=== PATIENT | female | born 1965 | race Caucasian/White ===

== ENCOUNTER 2020-11-16 15:45 | Outpatient (CLI) | payer MEDICARE, SELFPAY ==
--- NOTE | 2020-11-16 16:00 | USR_ITS ---
PROCEDURE INFORMATION: Exam: US Duplex Right Lower Extremity Veins, Limited Exam date and time: 11/16/2020 4:00 PM Age: 55 years old Clinical indication: Pain; Leg, lower; Right; Additional info: Right groin pain TECHNIQUE: Imaging protocol: Real-time Duplex ultrasound of the Right Lower Extremity with 2-D joel scale, color Doppler flow and spectral waveform analysis with image documentation. Limited exam was focused on the right lower extremity veins. COMPARISON: No relevant prior studies available. FINDINGS: Right deep veins: Unremarkable. The common femoral, femoral, proximal profunda femoral and popliteal veins are patent without thrombus. Normal Doppler waveforms. Normal compressibility and/or augmentation response. Right superficial veins: Unremarkable. Saphenofemoral junction is patent without thrombus. Soft tissues: Unremarkable. US/[place] [id number] IMPRESSION: No evidence of deep vein thrombosis.
== END 2020-11-16 15:46 | disposition home or self-care (01) ==
PROVIDERS: PCP Nurse Practitioner Family; Visit Provider Family Medicine
DX: M79.661 Pain in right lower leg (principal)
CPT/HCPCS: 93971

== ENCOUNTER 2020-11-17 11:52 | Emergency (ER) | payer MEDICARE, SELFPAY ==
[2020-11-17 12:04] VITALS: BP 125/81; PULSE 86; RESP 18; TEMP 36.5; O2SAT 97; BMI 21.1
--- NOTE | 2020-11-17 13:13 | CTR_ITS ---
PROCEDURE INFORMATION: Exam: CT Lumbar Spine Without Contrast Exam date and time: 11/17/2020 1:13 PM Age: 55 years old Clinical indication: Low back pain; Patient HX: C/O lbp/rle pain w/o injury prev rfa; Additional info: Pain with R leg radiculopathy TECHNIQUE: Imaging protocol: Computed tomography images of the lumbar spine without contrast. Radiation optimization: All CT scans at this facility use at least one of these dose optimization techniques: automated exposure control; mA and/or kV adjustment per patient size (includes targeted exams where dose is matched to clinical indication); or iterative reconstruction. COMPARISON: MRI Lumbar Spine w/o [id number] 01/01/2016 7:49 AM RADIATION DOSE METRICS: Total DLP (mGy-cm): 1530.11 FINDINGS: Vertebrae: There is no fracture of the lumbar spine. Lumbar vertebra maintain their height and alignment. There is no fracture of the posterior elements. There is no focal osseous lesion. Vertebral alignment is within normal limits. T12-L1: No disc bulge. No central or foraminal stenosis. L1-L2: Minimal disc bulge. No central or foraminal stenosis. L2-L3: There is a mild disc bulge with a more focal 4 mm far left lateral disc protrusion encroaching on the inferior aspect of the left neural foramen . The disc abuts the left L2 nerve root. L3-L4: Mild disc bulge with a 3 mm far left lateral focal disc protrusion mildly encroaching on the inferior aspect of the left foramen. There is partial effacement of the fat adjacent to the exiting left L3 nerve root in an extraforaminal location. No central or right foraminal stenosis. L4-L5: Mild disc bulge. There is facet arthropathy with mild bilateral foraminal stenosis. There is no central stenosis. There is a 5 mm far right lateral disc protrusion with a calcified annulus. This abuts the exiting right L4 nerve root. L5-S1: There is disc space narrowing with vacuum degeneration of the disc. There is a small posterior bony ridge and disc bulge. There is facet arthropathy. This results in moderate to severe right and more severe left foraminal stenosis. There is impingement of the exiting left L5 nerve root . The there is no central stenosis. Soft tissues: Unremarkable. CT/CT lumbar spine wo con* [id number] IMPRESSION: Multilevel disc disease and facet arthropathy as detailed above. Radiation Dose CTDIVOL = (mGy): DLP = 1530.11 (mGy-cm)
--- NOTE | 2020-11-17 13:17 | ED_ITS ---
HPI - Extremity Problem General: Chief complaint: Extremity Problem,Nontraumatic Stated complaint: LRE pain and swelling Time Seen by Provider: 11/17/20 12:40 History of Present Illness: HPI Narrative: 55-year-old female presents to the emergency room with complaints of right lower extremity pain radiating from the thigh down to the ankle. No injury. She had a venous duplex yesterday which is negative she does note any real significant swelling pain is very sensitive to motion in the hip as well. No trauma. Is not had any fever sweats or chills. MD Complaint: extremity pain Onset (ago): day(s) Pain Consistency: constant Location: right Quality: aching Radiation: distal Relieving factors: immobilization Exacerbating factors: weight bearing and walking Associated symptoms: Deny arthralgias, chest pain, fever(s), myalgias, rash or short of breath Review of Systems Const: Denies: fever(s) ENMT: Denies: throat pain, ear or mastoid pain, nasal discharge or nasal congestion Card: Denies: chest pain Resp: Denies: dyspnea, productive cough or non-productive cough GI: Denies: abdominal pain, nausea, vomiting, hematemesis, coffee ground emesis, diarrhea, constipation, bloating, hematochezia or melena : Denies: flank pain, difficulty voiding, dysuria, urinary frequency or urinary urgency Skin/Breast: Denies: rash Physical Exam Const: COMMON NORMALS: no acute distress GENERAL APPEARANCE: cooperative and comfortable ORIENTATION/CONSCIOUSNESS: Yes awake, Yes oriented to person, Yes oriented to place and Yes oriented to time HENMT: COMMON NORMALS: normocephalic, atraumatic, hearing grossly normal bilaterally and external ears normal HEAD & SCALP: normocephalic and atraumatic EXTERNAL EAR: Yes external ears normal Neck/C-Spine: COMMON NORMALS: no JVD Resp: COMMON NORMALS: normal respiratory effort, No retractions, No use of accessory muscles and clear to auscultation bilaterally AUSCULTATION: clear to auscultation bilaterally Cardio: COMMON NORMALS: no JVD, regular rate, regular rhythm and No murmurs present (Cardio) RATE: regular rate RHYTHM: regular rhythm GI: COMMON NORMALS: Soft to palpation and No hepatosplenomegaly present AUSCULTATION: Yes normoactive bowel sounds PALPATION: Yes Soft to palpation, No Tenderness to palpation present (GI), No Guarding due to palpation present (GI) and Yes No hepatosplenomegaly present Extremity: COMMON NORMALS: normal to inspection, capillary refill normal, no clubbing, cyanosis or edema, no calf tenderness and no pedal edema Neuro: SENSORIUM/ORIENTATION: Yes oriented to person, Yes oriented to place and Yes oriented to time Skin: COMMON NORMALS: no rashes or lesions noted GENERAL SKIN EXAM: no rashes or lesions noted Course Vital Signs: Vital signs: Vital Signs Temperature 97.7 F 11/17/20 12:04 Pulse Rate 77 11/17/20 15:39 Respiratory Rate 18 11/17/20 15:39 Blood Pressure 119/78 11/17/20 15:39 Pulse Oximetry 99 11/17/20 15:39 MDM - Extremity (Nontraumatic) MDM Narrative: Medical decision making narrative: Reviewed laboratory and imaging findings with the patient in the chart. We will discharge her home with pain medications muscle relaxers recommend follow-up with her primary care provider for advanced imaging if not improving Lab Data: Attestation: I reviewed the patient's lab results. Labs: Lab Results 11/17/20 11/17/20 Range/Units 13:25 13:25 WBC 8.6 (4.0-10.0) 10^3/ uL RBC 4.52 (4.1-5.3) 10^6/u L Hgb 14.9 (11.5-15.3) g/dL Hct 46.4 (37.0-47.0) % MCV 102.7 H (81-99) fL MCH 33.0 (28.0-34.0) pg MCHC 32.1 (30.0-36.0) g/dL RDW 13.0 (12.1-15.1) % Plt Count 301 (130-400) 10^3/c mm MPV 9.6 (7.4-10.4) fL Neut % (Auto) 63.9 % Lymph % (Auto) 25.7 % Mason % (Auto) 7.3 % Eos % (Auto) 2.1 % Baso % (Auto) 0.8 % Neut # (Auto) 5.51 (1.8-7.7) 10^3/u L Lymph # (Auto) 2.2 (0.8-4.8) 10^3/u L Mason # (Auto) 0.6 (0.2-0.9) 10^3/u L Eos # (Auto) 0.2 (0.0-0.8) 10^3/u L Baso # (Auto) 0.1 (0.0-0.1) 10^3/u L Nucleated RBC % (a uto) 0 % Nucleated RBCs # 0.0 /100WBC Sodium 139 (136-145) mmol/L Potassium 5.0 (3.5-5.1) mmol/L Chloride 103 (98-107) mmol/L Carbon Dioxide 28 (22-29) mmol/L Anion Gap 13.0 (5-19) BUN 9 (6-20) mg/dL Creatinine 0.6 (0.5-0.9) mg/dL GFR Calculation 104.6 (90-130) mL/min Glucose 90 (65-115) mg/dL Calculated Osmolal ity 286 (285-295) mOsm/k g Calcium 8.5 (8.5-10.5) mg/dL Total Bilirubin 0.3 (0.15-1.2) mg/dL AST 14 (0-32) U/L ALT < 5 (0-33) U/L Alkaline Phosphata se 74 (35-105) IU/L Total Protein 6.3 L (6.6-8.7) g/dL Albumin 4.1 (3.5-5.2) g/dL Globulin 2.2 (1.3-4.6) g/dL Discharge Plan Discharge Patient Disposition: Home Clinical Impression: Lumbar radiculopathy, right Condition: Stable Prescriptions: New hydrocodone-acetaminophen 5-325 mg tablet 1 tab PO Q6H PRN (Reason: pain) Qty: 20 RF: 0 diclofenac sodium 75 mg tablet,delayed release (DR/EC) 75 mg PO Q12H PRN (Reason: pain) Qty: 20 RF: 0 tizanidine 4 mg capsule 4 mg PO Q6H PRN (Reason: muscle spasticity) Qty: 30 RF: 0 prednisone 20 mg tablet 20 mg PO TID Qty: 15 RF: 0 No Action oxybutynin chloride 10 mg tablet extended release 24hr 10 mg PO BEDTIME RF: 0 carbidopa-levodopa 50-200 mg tablet extended release 1 tab PO BEDTIME RF: 0 trazodone 100 mg tablet 100 mg PO BEDTIME RF: 0 duloxetine 60 mg capsule,delayed release(DR/EC) 60 mg PO BID MDD see pharmacy comment RF: 0 Xanax 0.5 mg Tablet 0.5 mg PO BID PRN (Reason: Anxiety) RF: 0 PreserVision AREDS-2 250-90-40-1 mg Capsule 1 tab PO BID RF: 0 Discharge Orders: Discharge ED (Routine); Ordered 11/17/20 Ordered By: Sebastien Ratliff Referrals: Heidy Werner FNP [Primary Care Provider] - Discharge Diet: Usual diet Discharge Activity: Limit activity as instructed Patient Instructions: Opioid Safety Coding Level of Care Code ED Compounding Technician for Rob Fwd Exam Comprehensive
[2020-11-17 13:18] VITALS: BP 119/80; PULSE 82; RESP 14; O2SAT 99
[2020-11-17 13:40] LABS: Basophils # 0.1 10^3/uL (0.0-0.1); Basophils % 0.8 %; Eosinophils # 0.2 10^3/uL (0.0-0.8); Eosinophils % 2.1 %; Hematocrit 46.4 % (37.0-47.0); Hemoglobin 14.9 g/dL (11.5-15.3); Lymphocytes # 2.2 10^3/uL (0.8-4.8); Lymphocytes % 25.7 %; Mean Corpuscular HGB Conc 32.1 g/dL (30.0-36.0); Mean Corpuscular Volume 102.7 fL (81-99); Mean Platelet Volume 9.6 fL (7.4-10.4); Monocytes # 0.6 10^3/uL (0.2-0.9); Monocytes % 7.3 %; Neutrophils # 5.51 10^3/uL (1.8-7.7); Neutrophils % 63.9 %; Nucleated Red Blood Cells % 0 %; Platelet Count 301 10^3/cmm (130-400); Red Blood Count 4.52 10^6/uL (4.1-5.3); White Blood Count 8.6 10^3/uL (4.0-10.0)
[2020-11-17 14:00] VITALS: BP 120/77; PULSE 84; RESP 14; O2SAT 99
[2020-11-17 14:02] LABS: Alanine Aminotransferase < 5 U/L (0-33); Albumin Level 4.1 g/dL (3.5-5.2); Alkaline Phosphatase 74 IU/L (35-105); Aspartate Amino Transferase 14 U/L (0-32); Blood Urea Nitrogen 9 mg/dL (6-20); Calcium 8.5 mg/dL (8.5-10.5); Carbon Dioxide 28 mmol/L (22-29); Chloride 103 mmol/L (98-107); Globulin 2.2 g/dL (1.3-4.6); Glomerular Filtration Rate 104.6 mL/min (90-130); Glucose 90 mg/dL (65-115); Osmolality Calculated 286 mOsm/kg (285-295); Sodium 139 mmol/L (136-145); Total Bilirubin 0.3 mg/dL (0.15-1.2); Total Protein 6.3 g/dL (6.6-8.7)
[2020-11-17 15:39] VITALS: BP 119/78; PULSE 77; RESP 18; O2SAT 99
== END 2020-11-17 15:40 | disposition home or self-care (01) ==
PROVIDERS: Emergency Provider Family Medicine; PCP Nurse Practitioner Family
DX: M54.16 Radiculopathy, lumbar region (principal)
CPT/HCPCS: 72131; 80053; 85025; 99283

== ENCOUNTER 2020-12-04 12:44 | Outpatient (CLI) | payer MEDICARE, SELFPAY ==
--- NOTE | 2020-12-04 13:10 | MR_ITS ---
WS: [id number] MRI LUMBAR SPINE NONCONTRAST HISTORY: ABNORMAL L-SPINE CT SCAN COMPARISON: CT 11/17/2020 and prior MRI 01/01/2016 TECHNIQUE: Sagittal and axial multisequence imaging is submitted. 2 mm retrolisthesis of L2. No acute fracture or marrow edema. Osteochondrosis noted at L5-S1 with mod erate narrowing of the disc space and desiccation. Conus terminates normally at L1-2 disc level. L1-L2: Normal. L2-L3: Mild bilateral facet joint arthritis and ligamentum flavum hypertrophy, LEFT greater than RIGH T. LEFT foraminal disc protrusion and osteophyte with minimal contact on the L2 nerve root. L3-L4: Mild annular disc bulging with ligamentum flavum hypertrophy. No stenosis. L4-L5: Diffuse annular disc bulging and mild osteophytic ridging. RIGHT subarticular and foraminal di sc protrusion and osteophyte. Moderate RIGHT foraminal stenosis and mild on the LEFT. L5-S1: Diffuse asymmetric osteophytic ridging and disc bulging. Slightly greater to the LEFT. Central thecal sac is widely patent with mild clumping of the nerve roots. Bilateral facet joint arthritis, LEFT greater than RIGHT. Disc protrusion and osteophyte causing a moderate to severe LEFT subarticula r and foraminal stenosis. Mild stenosis on the RIGHT. Visualized retroperitoneum is negative. MR/MR lumbar spine wo con* [id number] IMPRESSION: 1. Advanced degenerative disc disease and osteochondrosis is stable at L5-S1. 2. Moderate to severe LEFT subarticular and foraminal stenosis at L5-S1 due to combination of disc protrusions and osteophyte with moderate encroachment upon the L5 nerve root. Similar to the prior study. 3. Mild RIGHT foraminal stenosis at L5-S1 with mild encroachment upon the L5 n erve root. 4. Moderate RIGHT foraminal and subarticular stenosis at L4-5 due to disc and osteophyte disease. Similar to the prior study.
== END 2020-12-04 12:45 | disposition home or self-care (01) ==
LOC: RADSHAW 12:49
PROVIDERS: PCP Nurse Practitioner; Visit Provider Nurse Practitioner
DX: R93.7 Abnormal findings on diagnostic imaging of other parts of musculoskeletal system (principal); M51.37 Other intervertebral disc degeneration, lumbosacral region; M42.9 Spinal osteochondrosis, unspecified; M48.07 Spinal stenosis, lumbosacral region; M48.061 Spinal stenosis, lumbar region without neurogenic claudication; M25.78 Osteophyte, vertebrae
CPT/HCPCS: 72148

== ENCOUNTER 2021-04-15 08:43 | Outpatient (CLI) | payer MEDICARE, SELFPAY ==
--- NOTE | 2021-04-15 08:52 | XR_ITS ---
WS: [id number] LUMBAR SPINE: 2 VIEWS TECHNIQUE: AP and lateral. HISTORY: ARTHRODESIS STATUS COMPARISON: 02/14/2010 Since the prior examination anterior lumbar fusion with interbody spacer at L5-S1. Hardware appears i n good position. No lucency around the hardware. The superior anterior plate is from the L5 vertebral body by 3.6 mm. No prior studies available to suggest this may have changed. There is no l ucency around the screws. The L5-S1 disc space has increased since the spacer placement. The remaining lumbar vertebral bodies are normally aligned with mild degenerative spondylitic changes . Facet joint arthritis is moderate at L4-5 and L5-S1. Mild LEFT curvature lumbar spine. SI joints are symmetric bilaterally. No soft tissue abnormalities. XR/XR lumbar spine 2-3V* [id number] IMPRESSION: 1. Since the prior examinations anterior lumbar fusion at L5-S1 with interbody spacer and improvement of the L5-S1 disc space. 2. Anterior lumbar plate from the L5 vertebral body by 3.6 mm. No kelly cency around the screws to suggest loosening. Anticipate follow-up radiographs in well evaluate for interval change.
== END 2021-04-15 08:44 | disposition home or self-care (01) ==
PROVIDERS: PCP Nurse Practitioner; Visit Provider Neurological Surgery
DX: Z98.1 Arthrodesis status (principal)
CPT/HCPCS: 72100

== ENCOUNTER 2021-06-21 12:11 | Outpatient (CLI) | payer MEDICARE, SELFPAY ==
--- NOTE | 2021-06-21 12:30 | XR_ITS ---
WS: [id number] Lumbar spine, AP and lateral weightbearing lumbar spine, 06/21/2021 Clinical Data: ARTHRODESIS STATUS Comparison: Lumbar spine, 04/15/2021. Findings: The anterior lumbar fusion at L5-S1 remains the same. There are 2 screws in each vertebral body with a plate connecting them. There is an artificial disc spacer at L5-S1. The anterior osteoarthritic change of L1-L4 remains the same. There is a large amount of fecal materi al throughout the colon. XR/XR lumbar spine 2-3V* [id number] Impression: Anterior lumbar fusion at L5-S1 is stable.
== END 2021-06-21 12:12 | disposition home or self-care (01) ==
LOC: RAD 12:19
PROVIDERS: PCP Nurse Practitioner; Visit Provider Neurological Surgery
DX: Z98.1 Arthrodesis status (principal)
CPT/HCPCS: 72100

== ENCOUNTER → 2021-09-18 11:52 | Outpatient (BNVA) | payer MEDICARE, SELFPAY | PROVIDERS: PCP Nurse Practitioner; Visit Provider Family Medicine | DX: E04.2 Nontoxic multinodular goiter (principal); N39.41 Urge incontinence; Z76.89 Persons encountering health services in other specified circumstances; F41.1 Generalized anxiety disorder; F43.10 Post-traumatic stress disorder, unspecified; Z79.899 Other long term (current) drug therapy | CPT/HCPCS: 80053; 80061; 84439; 84443; 85025 ==

== ENCOUNTER 2021-10-04 11:14 | Outpatient (CLI) | payer MEDICARE, SELFPAY ==
--- NOTE | 2021-10-04 11:40 | XRR_ITS ---
PROCEDURE INFORMATION: Exam: XR Lumbosacral Spine Exam date and time: 10/04/2021 12:04 PM Age: 56 years old Clinical indication: Low back pain; Prior surgery; Surgery type: Fusion low back 6months ago; Additional info: Worsening low back pain/? Surgical complications, ap/lat/flex-ext views TECHNIQUE: Imaging protocol: XR of the lumbosacral spine. Views: 4 or 5 views. COMPARISON: CR XR lumbar spine 2-3V* [id number] 06/21/2021 12:40 PM FINDINGS: Bones/joints: L5/S1 surgical hardware seen. Mild multilevel productive degenerative endplate changes throughout the spine. Soft tissues: Unremarkable. XR/XR lumbar spine min 4V [id number] IMPRESSION: 1. L5/S1 surgical hardware seen. 2. Mild multilevel productive degenerative endplate changes throughout the spine.
== END 2021-10-04 11:15 | disposition home or self-care (01) ==
PROVIDERS: PCP Family Medicine; Visit Provider Neurological Surgery
DX: M54.50 Low back pain, unspecified (principal); Z98.1 Arthrodesis status
CPT/HCPCS: 72110

== ENCOUNTER 2021-11-08 05:58 | Outpatient (CLI) | payer MEDICARE, SELFPAY ==
--- NOTE | 2021-11-08 06:30 | US_ITS ---
WS: [id number] ULTRASOUND THYROID TECHNIQUE: Ultrasound of the thyroid. CLINICAL INFORMATION: Thyroid nodules, cyst COMPARISON: May 23, 2020 December 06, 2015 FINDINGS: Thyroid: Right and left thyroid lobes are normal in size and echotexture. Slightly increased thyroid vascularity bilaterally appears increased compared to previous. Recommend correlation for thyroiditis . Right thyroid lobe: 5.8 cm x 1.8 cm x 2.1 cm Solid RIGHT thyroid nodule measuring 1.1 x 0.7 x 1.4 CM unchanged with increased vascularity and slig ht hypoechoic halo. This appears stable since 2016. Complex cystic RIGHT thyroid nodule measuring 1.0 x 0.6 x 0.7 cm unchanged. Left thyroid lobe: 4.5 cm x 1.6 cm x 1.5 cm. Isthmus: 0.2 mm. Cervical lymphadenopathy: A few prominent seminal lymph nodes nonspecific but likely reactive. US/US thyroid [id number] IMPRESSION: 1. Stable solid RIGHT thyroid nodule measuring 1.1 x 0.7 x 1.4 cm. This appear s relatively stable since 2016. 2. Additional complex cystic subcentimeter nodules are unchanged. No visualize d LEFT thyroid nodules. 3. Slightly increased thyroid vascularity bilaterally appears increased compar ed to previous. Recommend correlation for thyroiditis.
== END 2021-11-08 05:59 | disposition home or self-care (01) ==
LOC: RAD 05:59
PROVIDERS: PCP Family Medicine; Visit Provider Family Medicine
DX: E04.2 Nontoxic multinodular goiter (principal)
CPT/HCPCS: 76536